=== PATIENT | female | born 1990 | race American Indian/Alaskan Native ===

== ENCOUNTER 2019-10-28 09:56 | Emergency (ER) | payer OTHER ==
[2019-10-28 10:14] VITALS: BP 117/55
[2019-10-28 11:19] LABS: Basophils % (Auto) 0.5 % (0.0-1.8); Eosinophils # (Auto) 0.1 K/mm3 (0.0-0.4); Eosinophils % (Auto) 1.1 % (0.0-4.3); Hematocrit 40.6 % (30.3-42.9); Hemoglobin 13.8 gm/dl (10.1-14.3); Lymphocytes # (Auto) 1.6 K/mm3 (1.2-5.4); Lymphocytes % (Auto) 18.9 % (13.4-35.0); Mean Corpuscular HGB Conc 34 % (30-34); Mean Corpuscular Volume 96 fl (79-97); Monocytes # (Auto) 0.5 K/mm3 (0.0-0.8); Monocytes % (Auto) 5.9 % (0.0-7.3); Platelet Count 324 K/mm3 (140-440); Red Blood Count 4.22 M/mm3 (3.65-5.03); Red Cell Distribution Width 12.3 % (13.2-15.2)
--- NOTE | 2019-10-28 15:00 | Emergency Department Report ---
ED General Adult HPI - General Chief complaint: Vaginal Bleeding Stated complaint: VAG BLEEDING 8 WEEKS PREG Time Seen by Provider: 10/28/19 13:57 Source: patient Mode of arrival: Ambulatory Limitations: No Limitations - History of Present Illness Initial comments: This is a 29-year-old -0-1-0 female at approximately 7 weeks gestation who receives care at [facility] presenting today stating she noticed some blood after a bowel movement 2 days ago and today. Patient states that she was seen by her [employer] on Monday which she had an ultrasound and had testing done which were normal. Patient states that on Monday morning when she had a bowel movement after wiping she still little bit of blood on the paper towel. Patient states that today again this morning when she had a bowel movement she noticed some blood after she wiped. Patient states she is unsure if she bleeding is coming from her vaginal area or rectum. Patient denies any dysuria, actual bleeding. - Related Data Allergies Allergy/AdvReac Type Severity Reaction Status Date / Time No Known Allergies Allergy Unverified 10/28/19 10:09 ED Review of Systems ROS: Stated complaint: VAG BLEEDING 8 WEEKS PREG Other details as noted in HPI Comment: All other systems reviewed and negative ED Past Medical Hx - Past Medical History Previous Medical History?: Yes Additional medical history: Uterine Fibroids - Surgical History Past Surgical History?: Yes Additional Surgical History: surgery for uterine fibroids - Social History Smoking Status: Never Smoker ED Physical Exam - General Limitations: No Limitations General appearance: alert, in no apparent distress - Head Head exam: Present: atraumatic, normocephalic - Eye Eye exam: Present: normal appearance - ENT ENT exam: Present: mucous membranes moist - Neck Neck exam: Present: normal inspection - Respiratory Respiratory exam: Present: normal lung sounds bilaterally. Absent: respiratory distress - Cardiovascular Cardiovascular Exam: Present: regular rate, normal rhythm. Absent: systolic murmur, diastolic murmur, rubs, gallop - GI/Abdominal GI/Abdominal exam: Present: soft, normal bowel sounds - Extremities Exam Extremities exam: Present: normal inspection - Back Exam Back exam: Present: normal inspection - Neurological Exam Neurological exam: Present: alert, oriented X3 - Psychiatric Psychiatric exam: Present: normal affect, normal mood - Skin Skin exam: Present: warm, dry, intact, normal color. Absent: rash ED Course Vital Signs 10/28/19 10:13 Temperature 97.8 F Pulse Rate 87 Respiratory 16 Rate Blood Pressure 117/55 [Right] O2 Sat by Pulse 98 Oximetry ED Medical Decision Making - Lab Data Result diagrams: 10/28/19 10:45 Laboratory Last Values WBC 8.4 K/mm3 (4.5-11.0) 10/28/19 10:45 RBC 4.22 M/mm3 (3.65-5.03) 10/28/19 10:45 Hgb 13.8 gm/dl (10.1-14.3) 10/28/19 10:45 Hct 40.6 % (30.3-42.9) 10/28/19 10:45 MCV 96 fl (79-97) 10/28/19 10:45 MCH 33 pg (28-32) H 10/28/19 10:45 MCHC 34 % (30-34) 10/28/19 10:45 RDW 12.3 % (13.2-15.2) L 10/28/19 10:45 Plt Count 324 K/mm3 (140-440) 10/28/19 10:45 Lymph % (Auto) 18.9 % (13.4-35.0) 10/28/19 10:45 Leake % (Auto) 5.9 % (0.0-7.3) 10/28/19 10:45 Eos % (Auto) 1.1 % (0.0-4.3) 10/28/19 10:45 Baso % (Auto) 0.5 % (0.0-1.8) 10/28/19 10:45 Lymph # 1.6 K/mm3 (1.2-5.4) 10/28/19 10:45 Leake # 0.5 K/mm3 (0.0-0.8) 10/28/19 10:45 Eos # 0.1 K/mm3 (0.0-0.4) 10/28/19 10:45 Baso # 0.0 K/mm3 (0.0-0.1) 10/28/19 10:45 Seg Neutrophils % 73.6 % (40.0-70.0) H 10/28/19 10:45 Seg Neutrophils # 6.2 K/mm3 (1.8-7.7) 10/28/19 10:45 HCG, Qual Positive (Negative) 10/28/19 10:45 HCG, Quant [id number] mIU/mL (0-4) H 10/28/19 10:45 Blood Type O POSITIVE 10/28/19 10:45 - Radiology Data Radiology results: report reviewed, image reviewed ULTRASOUND OBSTETRIC imaging Transvaginal and transabdominal abdominal imaging is performed. Indication: vag bleed Findings: There is a single, living intrauterine . [place]-rump length = 1.97 cm = 8 weeks, 4 day(s). heart rate is 166 beats per minute. There is a 1.7 cm cyst in the left ovary. The right ovary is unremarkable. Small fibroids are noted in the uterus. There is a small subchorionic bleed noted. There is a trace amount of free fluid. Impression: Single, living intrauterine with estimated sonographic age of 8 weeks, 4 day(s). There is a small subchorionic bleed. Signer Name: Rupesh Alba MD Signed: 10/28/2019 4:02 PM Workstation Name: [id number] Transcribed By: SS Dictated By: Rupesh Alba MD Electronically Authenticated By: Rupesh Alba MD Signed Date/Time: 10/28/19 1602 - Medical Decision Making 29-year-old female presents to ED with bleeding in . ED course: Pt received ultra sound, CBC, urinalysis, test and quantitative ED All labs within normal limits, quantitative elevated matching gestation age. Patient does note that she has been wearing pad the whole day and has not seen any vaginal bleed in the pad Ultrasound shows single intrauterine gestation at 8 weeks weeks with 166 respectively. See reported above Vital signs normalized patient is in no acute distress. I discussed with the patient if follow-up with her [employer]. I discussed all labs and ultrasound findings with the patient. Chava with patient to increase fiber in her diet. I discussed with the patient that he if bleeding worsens or new symptoms develop to return to ED immediately Critical care attestation.: If time is entered above; I have spent that time in minutes in the direct care of this critically ill patient, excluding procedure time. ED Disposition Clinical Impression: Normal in first trimester, Subchorionic hemorrhage in first trimester Disposition: MED SCREENING EXAM-LEFT Is pt being admited?: No Does the pt Need Aspirin: No Condition: Stable Instructions: Threatened Miscarriage (ED), (ED), Uterine Fibroids (ED) Additional Instructions: Make sure to follow up with the primary care physician as discussed. Take all your medications as you've been prescribed. If you have any worsening symptoms or develop new symptoms please return to ED immediately. Referrals: PRIMARY CARE, [Primary Care Provider] - 3-5 Days Forms: Work/School Release Form(ED) Time of Disposition: 16:21
--- NOTE | 2019-10-28 16:07 | Ultrasound Report ---
ULTRASOUND OBSTETRIC imaging Transvaginal and transabdominal abdominal imaging is performed. Indication: vag bleed Findings: There is a single, living intrauterine . [place]-rump length = 1.97 cm = 8 weeks, 4 day(s). heart rate is 166 beats per minute. There is a 1.7 cm cyst in the left ovary. The right ovary is unremarkable. Small fibroids are noted i n the uterus. There is a small subchorionic bleed noted. There is a trace amount of free fluid. Impression: Single, living intrauterine with estimated sonographic age of 8 weeks, 4 day(s). There is a small subchorionic bleed. Signer Name: Rupesh Alba MD Signed: 10/28/2019 4:02 PM Workstation Name: [id number]
== END 2019-10-28 16:32 | disposition left against medical advice (07) ==
LOC: ED 09:56
DX: O20.8 Other hemorrhage in early pregnancy (principal); Z98.890 Other specified postprocedural states; Z3A.08 8 weeks gestation of pregnancy
CPT/HCPCS: 36415; 76801; 76817; 84702; 84703; 85025; 86900; 86901; 99283